=== PATIENT | male | born 1995 | race Caucasian/White ===

== ENCOUNTER 2017-10-19 07:47 | Day surgery (SDC) | payer OTHER ==
--- NOTE | 2017-10-17 10:43 | HP ---
AMENDED REPORT NOW INCLUDES COSIGNER DESIGNATION - ESIGNED BEFORE ADJUSTMENT PREOPERATIVE HISTORY AND PHYSICAL: DATE OF ADMISSION/SURGERY: 10/19/17 DATE OF OFFICE VISIT: 10/17/17 ATTENDING SURGEON: Kushal Pak MD.* (DICTATED BY TAMAR ABREU) PROCEDURE: Right shoulder arthroscopic decompression, debridement, and subpectoral biceps tenodesis. CHIEF COMPLAINT: Right shoulder. HISTORY OF PRESENT ILLNESS: Derik is a 22-year-old male who presents to the clinic for right shoulder pain due to impingement and biceps tendonitis. He failed conservative measures and has therefore agreed to undergo a right shoulder arthroscopic decompression, debridement, and subpectoral biceps tenodesis with Dr. Pak on 10/19/17. PAST MEDICAL HISTORY: Denies current problems. PAST SURGICAL HISTORY: Denies prior surgeries. MEDICATION: No acute medications. ALLERGIES: CEFPROZIL. FAMILY HISTORY: Denies pertinent family history. SOCIAL HISTORY: He lives with his roommate. He is an [employer]. He denies smoking. He reports occasional alcohol consumption. REVIEW OF SYSTEMS: A 14-point review of systems was reviewed with the patient. Positive for current complaint; otherwise, negative. Denies chest pain, shortness of breath, fever, chills, history of bleeding disorder, history of DVT or PE, history of MRSA. PHYSICAL EXAMINATION GENERAL: A 22-year-old well-developed, well-nourished male, in no acute distress. Alert and oriented x3. Appropriate mood and affect. Appropriate balance and coordination of the upper extremities. VITAL SIGNS: Height 70.5, weight 145, pulse 72, blood pressure 118/70, temperature 98.3, BMI 20.6. HEENT: Normocephalic, atraumatic. PERRLA. Throat: Clear. NECK: Supple. PULMONARY: Lungs clear to auscultation bilaterally. No wheezing, rhonchi, or rales. CARDIO: Regular rate and rhythm. S1, S2. No murmurs, gallops, or rubs. No edema. ABDOMEN: Positive bowel sounds. Soft, nontender. NEUROLOGIC: Alert and oriented x3. Cranial nerves grossly intact. Sensation is intact to light touch. MUSCULOSKELETAL: Right upper extremity, skin is intact. No warmth or erythema. Tenderness over the bicipital groove. Forward flexion, abduction 180. External rotation to 75, internal rotation to T10. No instability. +5/5 strength with rotator cuff testing, mildly positive Speeds, [place]. Mildly positive impingement. +2 radial pulse. Sensation is intact to light touch distally. DIAGNOSTIC STUDIES: MRI of the right shoulder revealed subacromial impingement with fluid and fluid in the bicipital groove with possible partial tearing of the superior labrum. IMPRESSION: Right shoulder impingement and biceps tendonitis. PLAN: The patient is scheduled to undergo a right shoulder arthroscopic decompression, debridement, subpectoral biceps tenodesis with Dr. Pak on . He will follow up in 10 to 14 days postop for followup and suture removal. Percocet will be used for postop pain management and Bactrim for antibiotic prophylaxis. TAMAR ABREU [id number]/[facility] [place] #: [id number] [facility]ITALIndia
[~2017-10-19 07:47] MED LIST: Buffered Lidocaine 0.9% SYRIN* 5 ML/SYR SYRINGE INTRADERM ONE
[2017-10-19] MEDS ORDERED: Clindamycin 900 MG IVPREMIX(* 900 MG/50 ML SDV IV ONE (08:10)
[2017-10-19] MEDS ORDERED: fentaNYL* 50 MCG/ML 2 ML VIAL (100 MCG VIAL) ONE (08:37)
[2017-10-19] MEDS ORDERED: Propofol* 10 MG/ML 20 ML BTL IV PUSH ONE (08:37)
[2017-10-19] MEDS ORDERED: Atracurium* 10 MG/ML 10 ML VIAL ONE (08:37)
[2017-10-19] MEDS ORDERED: Midazolam* 1 MG/ML 5 ML VIAL (5 MG) ONE (08:38)
[2017-10-19] MEDS ORDERED: Bupivacaine 0.25% SDV* 30 ML ONE (09:04)
[2017-10-19] MEDS ORDERED: Dexamethasone IV* 4 MG/ML 1 ML (4 MG) ONE (09:49)
[2017-10-19] MEDS ORDERED: Ketorolac INJ* 30 MG/ML 1 ML VIAL ONE (10:15)
[2017-10-19] MEDS ORDERED: Bupivacaine 0.5% SDV PF* 30ML VIAL ONE (10:19)
[2017-10-19] MEDS ORDERED: methylPREDNISolone ACETATE 80* 80 MG/ML 1 ML VIAL ONE (10:20)
[2017-10-19] MEDS ORDERED: Naloxone* 0.4 MG/ML 1 ML VIAL IV PRN (10:21)
[2017-10-19] MEDS ORDERED: oxyCODONE/Acetamin 5/325 MG* TAB PO PRN (10:21)
[2017-10-19] MEDS ORDERED: Ondansetron ODT TAB* 4 MG PO PRN (10:21)
[2017-10-19] MEDS ORDERED: fentaNYL* 50 MCG/ML 2 ML VIAL (100 MCG VIAL) IV PRN (10:21)
[2017-10-19] MEDS ORDERED: DiMENhydriNATE IV* 50 MG/ML VIAL IV PUSH PRN (10:21)
[2017-10-19] MEDS ORDERED: HYDROmorphone INJ* 1 MG/ML CARPUJECT SYRINGE IV PRN (10:21)
[2017-10-19] MEDS ORDERED: HYDROcodone/ACETAMIN 5-325 MG* 1 TAB PO PRN (10:21)
[2017-10-19] MEDS ORDERED: Ondansetron INJ* 2 MG/ML VIAL IV PRN (10:21)
[2017-10-19] MEDS ORDERED: DiMENhydriNATE IV* 50 MG/ML VIAL ONE (10:31)
[2017-10-19] MEDS ORDERED: Glycopyrrolate IV* 0.2 MG/ML 1 ML VIAL ONE (10:49)
[2017-10-19 12:40] VITALS: BP 121/77
--- NOTE | 2017-10-20 08:26 | OP ---
CC: PCP. OPERATIVE REPORT: DATE OF OPERATION: 10/19/17 DATE OF : 89 SURGEON: Kushal Pak MD COMMUNITY LIVING SPECIALIST: TAMAR Marshall Refractory Technician was needed for the entirety of the case to help with positioning, retraction, and utilized throughout all portions of the case. ANESTHESIOLOGIST: Dr. Holder. ANESTHESIA: General interscalene block. PRE-OP DIAGNOSIS: Bicipital tendonitis as well as impingement. POST-OP DIAGNOSIS: Bicipital tendonitis as well as impingement. OPERATIVE PROCEDURES: 1. Right shoulder arthroscopy with debridement. 2. Decompression. 3. Subpectoral biceps tenodesis. INDICATIONS: Derik Shell is a 22-year-old male who plays frisbee, rock climbing and weight lifting who presented with right shoulder pain, this is going on for almost 2 years. He had failed conservative management. He was diagnosed with impingement and bicipital tendonitis. Risks and benefits of surgery were discussed at length and included, but not limited to bleeding, infection, damage to nerves, vessels, surrounding structures, wound nonhealing, persistent pain, need for surgery, scarring, stiffness, incomplete relief of symptoms, risk of anesthesia. COMPLICATIONS: None. ESTIMATED BLOOD LOSS: Minimal. IMPLANTS USED: One [employer] Q-Fix anchor. DESCRIPTION OF PROCEDURE: The patient was greeted in the preoperative area by the attending surgeon. Correct extremity was marked and consent was confirmed. He then underwent interscalene nerve block by the anesthesiologist after which he was brought back to the operating suite, where he was placed in supine position on the operating table. He then underwent general anesthesia and endotracheal intubation after which the patient was positioned in a left lateral decubitus position with all bony prominences were padded. He was secured with a peg board and axillary roll was placed. The right shoulder was draped unsterile with 10 pounds retraction. The right shoulder was prepped and draped in the usual sterile fashion beginning with chlorhexidine soap, scrub, and alcohol wipe, and a final prep with ChloraPrep. After appropriate surgical pause indicating site, side, procedure, and administration of antibiotics, the posterolateral portal was made sharply with a 11 blade. Scope was introduced into the joint. Joint was examined. There was abundant erythema and hyperemia in the interval as well as along the biceps. There was evidence of damage to the biceps edy. The superior labrum was intact with mild fraying posteriorly. Along the superior labrum, the undersurface of the supraspinatus and subscapularis were intact. Once the anterior portals were made in outside-in fashion, shaver was used to debride the posterior labrum. The biceps was then tenotomized for later tenodesis. The inferior recess was intact, there was no drive-through sign, the glenohumeral joint had grade 0 changes. Once the intraarticular drill work was done, attention was directed to the subacromial space. The scope was positioned in the subacromial space. Lateral portal was made in an outside-in fashion. Shaver was used to remove the abundant bursa that was present. This revealed an intact rotator cuff, but the undersurface of the acromion had an anterolateral downward sloping spur. This was skeletonized using electrocautery device. The CA ligament was peeled back. The 4-0 oval ramone was used to do an acromioplasty to remove the downward sloping spur. All fluid and debris was removed. An 18 gauge needle was used to place a Depo- Medrol injection in the subacromial space. The wounds were copiously irrigated with sterile saline. The attention was directed to the biceps. The bed was airplaned to the right side. The anterior aspect of the shoulder was prepped again with ChloraPrep. The 15 blade was used to make an incision in line with the biceps tendon. Soft tissues were carefully dissected to expose the pec tendon. Once this was done, remainder of dissection was done bluntly. The pec was elevated, the biceps groove was palpated. The biceps was brought through the wound and was found to have abundant erythema and synovitis. The bicipital groove was then prepared in usual fashion using electrocautery device, the red ball rasp and the osteotome. The Q-Fix drill was then drilled unicortically. Q-Fix was deployed with excellent purchase. Sutures were then passed through the tendon approximately 1 cm proximal to the musculotendinous junction in a Irwin-Nico type configuration. Excess biceps was excised. The biceps was then secured and shuttled back into the wound. The wound was then copiously irrigated with sterile saline. The portals were closed with 3-0 nylon. The anterior wound was closed with 2-0 Vicryl and 3-0 Monocryl. 15 cc of 0.5% Marcaine plain were injected about the anterior wound and 80 mg of Depo-Medrol were injected in the subacromial space. Sterile dressings were applied. Cryo/Cuff and UltraSling were placed. He was awoken from anesthesia and transferred to the PACU in stable condition. POSTOPERATIVE PLAN: He will be nonweightbearing. He will be in the sling for approximately 4 weeks. He will be discharged on pain medications and antibiotics. I will see the patient back in approximately 10 to 14 days. DVT prophylaxis was considered but deferred due to no previous personal or family history. [id number]/[facility] #: [id number] [employer]ARIQ
== END 2017-10-19 13:19 | disposition home or self-care (01) ==
LOC: OR 07:47
PROVIDERS: ATTEND Orthopaedic Surgery
DX: M75.41 Impingement syndrome of right shoulder (principal); M75.21 Bicipital tendinitis, right shoulder; G89.18 Other acute postprocedural pain
CPT/HCPCS: C1776; J1040; J1100; J1240; J1885; J2250; J2704; J3010